=== PATIENT | female | born 1950 | race Caucasian/White ===

== ENCOUNTER → 2017-11-25 | Emergency (ER) | payer MEDICARE, BC ==
[2017-11-25 11:22] LABS: Urine Appearance Clear; Urine Blood Negative (Negative); Urine Color Yellow; Urine Ketones Negative (Negative); Urine Protein Negative (Negative); Urine Specific Gravity 1.005 (1.010-1.030); Urine Urobilinogen Negative (Negative)
--- NOTE | 2017-11-25 11:42 | ED ---
Ricki Mac Angela, scribed for Carolina Skaggs MD on 11/25/17 at 1037 . GI/ HPI - HPI Summary HPI Summary: This pt is a 67 y/o female, accompanied by her mother, presenting to [facility] c/o dysuria and lower abd pressure since 02:00 today. Pt has hx of bladder infections and pyelonephritis. Symptoms include 1 episode of nausea and vomiting (last night), now resolved. Has had some diarrhea recently. Denies back pain, hematuria, odor of urine, fever, chills, nausea, vomiting. Pt has not taken any pain medications. She drank 4 glasses of water with some relief. Pt reports vaginal discharge after procedure that she had done in September 2017. She has been check out for this and the doctor who performed the procedure is not concerned. This has not changed. She is currently on metformin, anti-hypertensive medications, thyroid medications, depression medications. No allergies reported. Pt is currently visiting from [place]. Patients medication reviewed this visit. - History of Current Complaint Chief Complaint: EDAbdPain Time Seen by Provider: 11/25/17 10:11 Stated Complaint: BLADDER INFECTION Hx Obtained From: Patient Onset/Duration: Started Minutes Ago, Started Hours Ago, Still Present Timing: Lasting Hours Severity: Mild Current Severity: Mild Pain Intensity: 6 Location of Pain: Suprapubic Pain Characteristics: Pressure, Other: - frequency, urgency Associated Signs and Symptoms: Positive: Diarrhea - some, Dysuria, Abdominal Pain - lower, UTI Symptoms - dysuria. Negative: Back Pain, Nausea, Vomiting, Hematuria PMH/Surg Hx/FS Hx/Imm Hx Previously Healthy: Yes Endocrine/Hematology History: Reports: Hx Diabetes, Hx Thyroid Disease - hypothyroidism Cardiovascular History: Reports: Hx Hypertension History: Reports: Hx Kidney Infection, Other Problems/Disorders - UTI Psychiatric History: Reports: Hx Depression - Surgical History Surgery Procedure, Year, and Place: Urethral dilatation Infectious Disease History: No Infectious Disease History: Denies: Traveled Outside the [place] in Last 30 Days - Family History Known Family History: Positive: Hypertension - Social History Occupation: Retired Lives: With Family Alcohol Use: Rare Substance Use Type: Reports: None Smoking Status (MU): Never Smoked Tobacco Review of Systems Negative: Fever Eyes: Negative ENT: Negative Cardiovascular: Negative Respiratory: Negative Positive: Abdominal Pain - lower. Negative: Vomiting, Diarrhea, Nausea Positive: dysuria. Negative: hematuria, other Negative: Other - back pain Skin: Negative Neurological: Negative All Other Systems Reviewed And Are Negative: Yes Physical Exam Triage Information Reviewed: Yes Vital Signs On Initial Exam: Initial Vitals Temp Pulse Resp BP Pulse Ox 98.1 F 85 18 126/67 100 11/25/17 09:36 11/25/17 09:36 11/25/17 09:36 11/25/17 09:36 11/25/17 09:36 Vital Signs Reviewed: Yes Appearance: Positive: Well-Appearing, No Pain Distress, Well-Nourished Skin: Positive: Warm, Skin Color Reflects Adequate Perfusion, Dry Head/Face: Positive: Normal Head/Face Inspection Eyes: Positive: Normal, EOMI, HARESH ENT: Positive: Normal ENT inspection, Pharynx normal, TMs normal Neck: Positive: Supple, Nontender, No Lymphadenopathy Respiratory/Lung Sounds: Positive: Clear to Auscultation, Breath Sounds Present Cardiovascular: Positive: Normal, RRR Abdomen Description: Positive: No Organomegaly, Soft, Other:. Negative: Nontender - mild suprabic pain with deep palp, Bruit, CVA Tenderness (R), CVA Tenderness (L) Bowel Sounds: Positive: Present Pelvic Exam: Positive: cervicitis Musculoskeletal: Positive: Normal Neurological: Positive: Normal, Alert, Oriented to Person Place, Time Psychiatric: Positive: Normal, Affect/Mood Appropriate AVPU Assessment: Alert - [place] Coma Scale Best Eye Response: 4 - Spontaneous Best Motor Response: 6 - Obeys Commands Best Verbal Response: 5 - Oriented Coma Scale Total: 15 Diagnostics - Vital Signs Vital Signs Temp Pulse Resp BP Pulse Ox 11/25/17 09:36 98.1 F 85 18 126/67 100 - Laboratory Lab Statement: Any lab studies that have been ordered have been reviewed, and results considered in the medical decision making process. Re-Evaluation - Re-Evaluation Second Eval Re-Evaluation Time: 11:46 Comment: I reviewed with the pt that urinalysis shows UTI. GIGU Course/Dx - Course Assessment/Plan: Pt presents with dyuria and frequence. Pt recurrent UTI - none > 1 year. states feels similar. vss. non concerning exam. will check urine. abx - macrobid. culture. hydrate. pyridium. return precautions. Pt comfortable and in agreement with plan - Diagnoses Provider Diagnoses: Urinary tract infection Discharge - Discharge Plan Condition: Stable Disposition: HOME Prescriptions: Nitrofurantoin Monohyd Macro [Macrobid] 100 mg PO BID #20 cap Phenazopyridine TAB* [Pyridium 100 mg TAB*] 100 mg PO TID PRN #10 tab PRN Reason: dysuria Patient Education Materials: Urinary Tract Infection in Women (ED) Referrals: Non Staff,Doctor [Primary Care Provider] - Additional Instructions: - stay well hydrated - drink plenty of non-alcoholic, non caffinated beverages - your urine will be further tested - if you require any changes to your treatment, we will contact you - this usually take 2 days - Contact your primary doctor to arrange a follow-up appointment next week. Contact your doctor or return with questions or concerns - Take your antibiotics exactly as prescribed until gone - You may also take Tylenol every 6 hours as needed The documentation as recorded by the Ricki magallanes Angela accurately reflects the service I personally performed and the decisions made by me, Carolina Skaggs MD.
[2017-11-25 12:22] VITALS: BP 141/85
== END | disposition home or self-care (01) ==
LOC: ED 09:33
DX: N39.0 Urinary tract infection, site not specified (principal); R19.7 Diarrhea, unspecified; Z86.79 Personal history of other diseases of the circulatory system
CPT/HCPCS: 81003; 81015; 87077; 87086; 87186; 99282

== ENCOUNTER 2019-07-30 12:01 | Emergency (ER) | payer MEDICARE, BC ==
[2019-07-30 12:18] VITALS: BP 127/72
--- NOTE | 2019-07-30 12:41 | UC ---
Complaint Female HPI - HPI Summary HPI Summary: 69 yo female presents with urinary symptoms. She tells me that this morning she had an episode of urinary incontinence with urinary burning and frequency. She has had many UTIs in the past and this feels similar. She also mentions that she had lumbar back surgery in May, but has had no episodes of incontinence or troubles with this since that time. She denies numbness, tingling, saddle anesthesia, or loss of bowel control. Denies fever, chills, or abdominal pain. - History Of Current Complaint Chief Complaint: UCGU Stated Complaint: BURNING URINATION Time Seen by Provider: 07/30/19 12:02 Hx Obtained From: Patient, Family/Mat[employer] ?: No Onset/Duration: Sudden Onset Timing: Constant Severity Initially: Moderate Severity Currently: Moderate Pain Intensity: 8 Pain Scale Used: 0-10 Numeric - Allergies/Home Medications Allergies/Adverse Reactions: Allergies Allergy/AdvReac Type Severity Reaction Status Date / Time No Known Allergies Allergy Verified 07/30/19 12:18 PMH/Surg Hx/FS Hx/Imm Hx - Additional Past Medical History Additional PMH: dementia - Surgical History Surgical History: Yes Surgery Procedure, Year, and Place: Urethral dilatation - Family History Known Family History: Positive: Hypertension - Social History Occupation: Retired Lives: With Family Alcohol Use: Rare Substance Use Type: None Smoking Status (MU): Former Smoker Review of Systems All Other Systems Reviewed And Are Negative: No Constitutional: Positive: Negative Skin: Positive: Negative Respiratory: Positive: Negative Cardiovascular: Positive: Negative Gastrointestinal: Positive: Negative Genitourinary: Positive: Dysuria, Frequency, Urgency Psychological: Positive: Negative Physical Exam - Summary Physical Exam Summary: GENERAL: NAD. WDWN. No pain distress. SKIN: No rashes, sores, lesions, or open wounds. NECK: Supple. Nontender. No lymphadenopathy. CHEST: CTAB. No r/r/w. No accessory muscle use. Breathing comfortably and in no distress. CV: RRR. Without m/r/g. Pulses intact. Cap refill <2seconds ABDOMEN: Soft. NTTP. No distention or guarding. No CVA tenderness. Bowel sounds present NEURO: Alert. PSYCH: Age appropriate behavior. Triage Information Reviewed: Yes Vital Signs: Initial Vital Signs Temp 98.2 F 07/30/19 12:12 Pulse 83 07/30/19 12:12 Resp 20 07/30/19 12:12 BP 127/72 07/30/19 12:12 Pulse Ox 99 07/30/19 12:12 Laboratory Tests 07/30/19 12:31 POC Urine Color Yellow POC Urine Clarity Slightly cloudy POC Urine pH 5.5 POC Ur Specif [place] 1.010 POC Urine Protein Negative POC Ur Glucose (UA) Negative POC Urine Ketones Negative POC Urine Blood Trace-intact A POC Urine Nitrite Negative POC Urine Bilirubin Negative POC Urine Urobilinogen 0.2 POC U Leukocyte Esteras 1+ A Vital Signs Reviewed: Yes Complaint Female Dx - Course Course Of Treatment: UA positive. Will treat with keflex. She did have an episode of urinary incontinence this morning with back surgery in May, but this seems to be related to a UTI as she is having no numbness, tingling, loss of sensation, and has had no instances of urinary trouble/ incontinence since the surgery. - Differential Dx/Diagnosis Provider Diagnosis: UTI (urinary tract infection) Discharge ED - Sign-Out/Discharge Documenting (check all that apply): Patient Departure All imaging exams completed and their final reports reviewed: No Studies - Discharge Plan Condition: Stable Disposition: HOME Prescriptions: Cephalexin CAP* [Keflex CAP*] 500 mg PO BID #10 cap Patient Education Materials: Urinary Tract Infection in Women (DC) Referrals: No Primary Care Phys,NOPCP [Primary Care Provider] - Additional Instructions: If you develop a fever, shortness of breath, chest pain, new or worsening symptoms - please call your PCP or go to the ED immediately. - Billing Disposition and Condition Condition: STABLE Disposition: Home - Attestation Statements Provider Attestation: Per institutional requirements, I have reviewed the chart, however, I was not consulted specifically or made aware of this patient by the midlevel provider. I did not personally evaluate, interact with , or disposition this patient.
--- NOTE | 2019-07-31 17:30 | UC ---
- Progress Note Progress Note: Cultures negative for growth, nurse to call patient to stop ABX. -Luly Lepe PAC Course/Dx - Diagnoses Provider Diagnoses: UTI (urinary tract infection) Discharge ED - Sign-Out/Discharge Documenting (check all that apply): Patient Departure All imaging exams completed and their final reports reviewed: No Studies - Discharge Plan Condition: Stable Disposition: HOME Prescriptions: Cephalexin CAP* [Keflex CAP*] 500 mg PO BID #10 cap Patient Education Materials: Urinary Tract Infection in Women (DC) Referrals: No Primary Care Phys,NOPCP [Primary Care Provider] - Additional Instructions: If you develop a fever, shortness of breath, chest pain, new or worsening symptoms - please call your PCP or go to the ED immediately. - Billing Disposition and Condition Condition: STABLE Disposition: Home
== END 2019-07-30 13:00 | disposition home or self-care (01) ==
LOC: UCEAST 12:01
DX: N39.0 Urinary tract infection, site not specified (principal); R32 Unspecified urinary incontinence; Z87.440 Personal history of urinary (tract) infections; F03.90 Unspecified dementia, unspecified severity, without behavioral disturbance, psychotic disturbance, mood disturbance, and anxiety; Z87.891 Personal history of nicotine dependence
CPT/HCPCS: 81003; 87086; 99212; G0463